=== PATIENT | male | born 2000 | race African-American/Black ===

== ENCOUNTER 2022-05-23 09:14 | Emergency (ER) | payer OTHER | END 2022-05-23 10:58 | LOC: ERS 09:14 | DX: R19.7 Diarrhea, unspecified (principal) | CPT/HCPCS: 99283 ==

== ENCOUNTER 2022-05-25 17:33 | Emergency (ER) | payer OTHER, SELFPAY ==
[2022-05-25] MEDS ORDERED: Bupivacaine 0.25% 10 ML VIAL ONE (20:38)
== END 2022-05-25 21:35 | disposition home or self-care (01) ==
LOC: ERS 17:33
DX: K64.5 Perianal venous thrombosis (principal)
CPT/HCPCS: 99283; S0020

== ENCOUNTER 2022-05-26 09:49 | Emergency (ER) | payer SELFPAY | END 2022-05-26 10:26 | disposition home or self-care (01) | LOC: ERS 09:49 | DX: R42 Dizziness and giddiness (principal) | CPT/HCPCS: 99281 ==